=== PATIENT | male | born 2000 | race Two or more races ===

== ENCOUNTER 2024-03-27 11:43 | Emergency (ER) | payer MEDICAID, OTHER ==
[2024-03-27 12:28] VITALS: BP 108/69; PULSE 61; RESP 18; TEMP 97.6; O2SAT 98
== END 2024-03-27 12:56 | disposition home or self-care (01) ==
LOC: ER 11:43
DX: S61.213A Laceration without foreign body of left middle finger without damage to nail, initial encounter (principal); Z88.2 Allergy status to sulfonamides; X58.XXXA Exposure to other specified factors, initial encounter; Y93.89 Activity, other specified; Y92.89 Other specified places as the place of occurrence of the external cause; Y99.8 Other external cause status
CPT/HCPCS: 12002